=== PATIENT | female | born 1955 | race Caucasian/White ===

== ENCOUNTER → 2017-03-13 | Outpatient (CLI) | payer BC, OTHER ==
[~2017-03-13] MED LIST: ACIDOPHILUS1 EACH PO; ASPIRIN81 M2 PO; CALCIUM 500 +1 EAC5 PO; MULTIVITAMINS PO; VITAMIN E400 UNIT PO
== END ==
LOC: RAD 10:55
DX: Z12.31 Encounter for screening mammogram for malignant neoplasm of breast (principal)

== ENCOUNTER → 2018-01-22 | Outpatient (CLI) | payer BC, OTHER | LOC: RAD 13:02 | DX: Z12.31 Encounter for screening mammogram for malignant neoplasm of breast (principal) ==